=== PATIENT | female | born 1980 | race Caucasian/White ===

== ENCOUNTER 2017-01-19 12:20 | Emergency (ER) | payer BC ==
[2017-01-19 14:23] LABS: #Eosinphils 0.1 thou/uL (0.0-0.7); #Lymphocytes 2.2 thou/uL (1.20-3.40); #Monocytes 0.4 thou/uL (0.11-0.59); #Neutrophils 3.9 thou/uL (1.40-6.50); %Basophils 0.4 % (0.0-1.0); %Eosinophils 1.9 % (0.0-10.0); %Lymphocytes 33.3 % (21.0-51.0); %Monocytes 6.5 % (0.0-10.0); Hematocrit 38.1 % (36.0-47.0); Mean Platelet Volume 6.6 fL (7.4-10.4); Red Blood Cell (RBC) Count 4.06 mill/uL (4.20-5.40); White Blood Cell (WBC) Count 6.7 thou/uL (4.8-10.8)
[2017-01-19 14:47] LABS: ALT (SGPT) 11 U/L (8-55); AST (SGOT) 12 U/L (5-34); Alkaline Phosphatase 57 U/L (40-150); Anion Gap 11 mmol/L (10-20); BUN (Urea Nitrogen) 13 mg/dL (7.0-18.7); Bilirubin, Total 0.5 mg/dL (0.2-1.2); Calc. Creatinine Clearance 0 mL/min (70-130); Calcium 9.3 mg/dL (7.8-10.44); Carbon Dioxide 25 mmol/L (22-29); Chloride 104 mmol/L (98-107); Estimated GFR-MDRD 80; Globulin 4.1 g/dL (2.4-3.5); Lipase 7 U/L (8-78); Protein, Total 8.2 g/dL (6.0-8.3)
--- NOTE | 2017-01-19 15:07 | RAD ---
ABDOMEN 1 VIEW: HISTORY: Abdominal pain. COMPARISON: 06/28/16. FINDINGS: Gas and stool are present throughout the colon. Flocculent density is likely related to medication. Small bowel gas pattern is nonspecific. Phleboliths project over the pelvis. IMPRESSION: No significant abnormalities are demonstrated. POS: [facility]
[2017-01-19 15:20] LABS: Bilirubin Negative (Negative); Blood, Urine Negative (Negative); Glucose, Urine (Dipstick) Negative (Negative); Ketone, Urine Negative (Negative); Nitrite Negative (Negative); Protein, Urine (Dipstick) Negative (Neg-Trace); Urobilinogen 0.2 mg/dL (0.2-1.0)
== END 2017-01-19 15:12 | disposition home or self-care (01) ==
LOC: ERS 12:20
DX: K59.00 Constipation, unspecified (principal); J44.9 Chronic obstructive pulmonary disease, unspecified; G43.909 Migraine, unspecified, not intractable, without status migrainosus; F31.9 Bipolar disorder, unspecified; Z87.891 Personal history of nicotine dependence; Z79.899 Other long term (current) drug therapy
CPT/HCPCS: 36415; 74000; 80053; 81003; 83690; 85025

== ENCOUNTER 2017-10-24 16:18 | Outpatient (CLI) | payer BC ==
--- NOTE | 2017-10-24 17:21 | RAD ---
FOUR VIEW LEFT KNEE SERIES: 10/24/17 CLINICAL HISTORY: Exercise induced left knee pain. FINDINGS: There are two metallic screws traversing the proximal tibia. No significant perihardware lucency is s een. There is no acute fracture or significant a arthropathy. There is minute osteophytosis of the kn ee joint. IMPRESSION: Postoperative proximal left tibia. No acute osseous abnormality is visualized. POS: [facility]
== END 2017-10-24 16:19 | disposition home or self-care (01) ==
LOC: SCSRAD 16:18
PROVIDERS: ATTEND Family Medicine
DX: M22.2X2 Patellofemoral disorders, left knee (principal); Z98.890 Other specified postprocedural states

== ENCOUNTER 2017-10-29 13:31 | Emergency (ER) | payer BC ==
[2017-10-29] MEDS ORDERED: Water For Inject, Bacteriostat 30 ML ONE (14:22)
[2017-10-29] MEDS ORDERED: methylPREDNISolone Sod Succ/PF 125 MG/2 ML VIAL ONE (14:22)
[2017-10-29] MEDS ORDERED: Ketorolac Tromethamine 60 MG/2 ML VIAL ONE (14:22)
--- NOTE | 2017-10-29 15:00 | RAD ---
CHEST TWO VIEWS: History: Dyspnea. Comparison: 07-29-16 FINDINGS: Cardiac silhouette and pulmonary vasculature are unremarkable. Mediastinum is midline. No confluent a irspace consolidation, pneumothorax, or pleural fluid. IMPRESSION: No active cardiopulmonary abnormalities are demonstrated. POS: [facility]
== END 2017-10-29 15:23 | disposition home or self-care (01) ==
LOC: SCSER 13:31
DX: J45.901 Unspecified asthma with (acute) exacerbation (principal); S46.912A Strain of unspecified muscle, fascia and tendon at shoulder and upper arm level, left arm, initial encounter; F41.9 Anxiety disorder, unspecified; F31.9 Bipolar disorder, unspecified; Z87.891 Personal history of nicotine dependence; G43.909 Migraine, unspecified, not intractable, without status migrainosus; Z79.899 Other long term (current) drug therapy
CPT/HCPCS: 71046; 93005; 96372; J1885; J2930

== ENCOUNTER 2018-04-06 23:48 | Observation (INO) | payer BC ==
[2018-04-07 00:12] LABS: #Basophils 0.1 thou/uL (0.0-0.2); #Eosinphils 0.2 thou/uL (0.0-0.7); #Lymphocytes 2.2 thou/uL (1.20-3.40); #Monocytes 0.4 thou/uL (0.11-0.59); #Neutrophils 4.4 thou/uL (1.40-6.50); %Basophils 0.8 % (0.0-1.0); %Eosinophils 2.2 % (0.0-10.0); %Lymphocytes 30.4 % (21.0-51.0); %Neutrophils 60.7 % (42.0-75.0); Hemoglobin 12.4 g/dL (12.0-16.0); Mean Corpuscular HGB CONC 34.2 g/dL (32.0-36.0); Mean Corpuscular Volume 90.7 fL (78.0-98.0); Mean Platelet Volume 6.5 fL (7.4-10.4); Platelet Count 233 thou/uL (130-400); RBC Distribution Width 11.2 % (11.5-14.5); Red Blood Cell (RBC) Count 3.99 mill/uL (4.20-5.40); White Blood Cell (WBC) Count 7.2 thou/uL (4.8-10.8)
[2018-04-07 00:31] LABS: Bilirubin Negative (Negative); Blood, Urine Negative (Negative); Clarity CLOUDY (Clear); Glucose, Urine (Dipstick) Negative (Negative); Leukocyte Negative (Negative); Nitrite Negative (Negative); Protein, Urine (Dipstick) Negative (Neg-Trace); Specific Gravity, Urine 1.023 (1.002-1.036); Urobilinogen 0.2 mg/dL (0.2-1.0); pH, Urine 5.5 (5.0-9.0)
[2018-04-07 00:35] LABS: ALT (SGPT) 11 U/L (8-55); AST (SGOT) 16 U/L (5-34); Albumin 4.1 g/dL (3.5-5.0); Alkaline Phosphatase 55 U/L (40-150); Anion Gap 13 mmol/L (10-20); BUN (Urea Nitrogen) 14 mg/dL (7.0-18.7); Bilirubin, Total 0.2 mg/dL (0.2-1.2); Calc. Creatinine Clearance 0 mL/min (70-130); Carbon Dioxide 23 mmol/L (22-29); Chloride 107 mmol/L (98-107); Estimated GFR-MDRD 81; Globulin 3.9 g/dL (2.4-3.5); Glucose 105 mg/dL (70-105); Sodium 139 mmol/L (136-145)
[2018-04-07] MEDS ORDERED: Acetaminophen 500 MG TAB ONE (02:15)
[2018-04-07] MEDS ORDERED: Ondansetron PF 4 MG/2 ML Vial ONE (02:15)
[2018-04-07 02:29] LABS: Pregnancy Test - Urine (BHCG) Negative (Negative); Pregu Control Background? CLEAR/WHITE (CLR/WHITE); Pregu Control Bar Appear? YES (CONTROL BAR); Specific Gravity 1.023 (1.002-1.036)
[2018-04-07] MEDS ORDERED: Midazolam HCl 2 mg/2 ml Vial ONE (05:14)
[2018-04-07] MEDS ORDERED: Benzocaine 20% Spray 60 ML CAN ONE (05:19)
[2018-04-07] MEDS ORDERED: Lidocaine 2% Jelly 5 ML TUBE ONE (05:21)
[2018-04-07 07:45] VITALS: BMI 38.1
--- NOTE | 2018-04-07 09:31 | RAD ---
FRONTAL RADIOGRAPH ABDOMEN: Date: 04/07/18 COMPARISON: 01/19/17. HISTORY: SBO, nasogastric tube placement. FINDINGS: Nasogastric tube extends into the midline epigastric region. No free intraperitoneal air. No air flui d levels. IMPRESSION: Nasogastric tube as above. POS: [facility]
--- NOTE | 2018-04-07 09:37 | CT ---
PRELIMINARY REPORT/[facility]/EMERGENTY AFTER-HOURS PROCEDURE CT Abdomen and Pelvis With Contrast EXAM DATE/TIME: 04/07/2018 2:11 AM CLINICAL HISTORY: 37 years old, female; Pain; Abdominal pain; Generalized; Patient HX: F37 presents to ed for abdominal pain. PT reports the pain began on saturday and it began suddenly, not after eating. PT reports the pa in is all over the middle of her abdomen. PT denies drinking alcohol. Hx- seizures, on medication. TECHNIQUE: Axial computed tomography images of the abdomen and pelvis with intravenous contrast. Coronal reformatted images were created and reviewed. COMPARISON: No relevant prior studies available. FINDINGS: Lower thorax: Small-sized hiatal hernia. ABDOMEN: Liver: Normal. Gallbladder and bile ducts: Normal. Pancreas: Normal. Spleen: Normal. Adrenals: Normal. Kidneys and ureters: Normal. Stomach and bowel: Scattered colonic diverticulosis. Few loops of minimally dilated, gas and fluid fi lled mid and distal small bowel, without definite focal transition to normal caliber small bowel iden tified. Appendix: Appendix is normal. PELVIS: Bladder: Unremarkable as visualized. Reproductive: Unremarkable as visualized. ABDOMEN and PELVIS: Intraperitoneal space: Small amount of pelvic free fluid. Bones/joints: Bilateral L5 pars defects. Soft tissues: Moderate-sized fat containing ventral hernia, without acute complications. Vasculature: Normal. No abdominal aortic aneurysm. Lymph nodes: Normal. No enlarged lymph nodes. IMPRESSION: Few loops of minimally dilated, gas and fluid-filled mid and distal small bowel, without definite foc al transition to normal caliber small bowel identified. Findings likely represent ileus, although par tial small bowel obstruction possible. Thank you for allowing us to participate in the care of your patient. Dictated and Authenticated by: Gary Ornelas MD 04/07/2018 3:19 AM Central Time ([place] & [place]) FINAL REPORT CT ABDOMEN AND PELVIS WITH IV CONTRAST: Date: 04/07/18 FINDINGS/IMPRESSION: I agree with the preliminary report given by Sridevi. POS: [facility]
[2018-04-07] MEDS ORDERED: Ondansetron PF 4 MG/2 ML Vial IVP PRN (10:19)
[2018-04-07] MEDS ORDERED: Sodium Chloride 0.9% 1,000 ML IV SCH (10:19)
[2018-04-07] MEDS ORDERED: Ondansetron ODT 4 MG TAB SL PRN (10:19)
[2018-04-07] MEDS ORDERED: Acetaminophen 325 MG TAB PO PRN (10:19)
[2018-04-07] MEDS ORDERED: Cepastat Lozenges 1 LOZ PO PRN (10:20)
[2018-04-07] MEDS ORDERED: Chloraseptic Spray 180 ml Bottle PO PRN (10:21)
[2018-04-07] MEDS ORDERED: Pantoprazole 40 MG VIAL IVP SCH (10:30)
[2018-04-07] MEDS: D5 1/2 NS w/20 mEq KCL 1,000 ML IV SCH ×2 (10:50→20:07)
[2018-04-07] MEDS: Acetaminophen 1,000 MG in Premix Bag 1 BAG IVPB PRN (10:50)
[2018-04-07] MEDS ORDERED: PROVENTIL INHALER 6.7 G (200 INHALATIONS) INH PRN (12:07)
[2018-04-07] MEDS ORDERED: tiZANidine HCl 4 MG TAB PO PRN (12:07)
--- NOTE | 2018-04-07 18:00 | HP ---
CHIEF COMPLAINT: Abdominal pain. HISTORY: Ms. Preston is a 37-year-old woman, who presented to the emergency room with abdominal pain, nausea, and vomiting, which came on suddenly around 1 o'clock yesterday afternoon. She states that the pain is diffuse and came on several hours after eating and did not seem to be related to what she ate. It is a little better since she has been admitted to the hospital. PAST MEDICAL HISTORY: Asthma and an abnormal heart rhythm as well as severe migraines. PAST SURGICAL HISTORY: Attempted laparoscopic ovarian cystectomy with injury to the either iliac or aortic vessels and required emergent surgery when she was young. She has since undergone hysterectomy and was found to have bowel adherent to her uterus and had a small bowel resection for that. She has also had knee surgery and tubal ligation. She does have a history of anxiety as well as migraines. SOCIAL HISTORY: Quit both tobacco and drugs many years ago. ALLERGIES: SHE HAS AN ADVERSE DRUG REACTION TO MORPHINE, WHICH CAUSES HER TO BECOME COMBATIVE. OUTPATIENT MEDICATIONS: Include: 1. Sertraline. 2. Topamax. 3. Tizanidine. 4. Lamictal. 5. Advair and ProAir inhalers. 6. DuoNeb as needed. 7. Singulair. 8. Topiramate. FAMILY HISTORY: Noncontributory. REVIEW OF SYSTEMS: Negative except per HPI. Her breathing is fine and she has not had to use her rescue inhaler for a while. PHYSICAL EXAMINATION: VITAL SIGNS: The patient has been afebrile with normal vital signs since her admission. HEENT: Unremarkable. NECK: Supple without lymphadenopathy or thyroid nodules. HEART: Regular in its rate and rhythm. I do not appreciate any murmurs, rubs, or gallops. LUNGS: Clear to auscultation bilaterally. ABDOMEN: Soft and nondistended. She does have some mild diffuse tenderness to palpation, but does not exhibit rigidity, rebound, or guarding. Bowel sounds are present, although somewhat hypoactive. She has a healed midline incision as well as lateral laparoscopic incisions. EXTREMITIES: Warm and well perfused without edema. NEURO: No focal deficits. PSYCHIATRIC: Alert, oriented, and appropriate. LABORATORY DATA: Labs show normal white count without shift, unremarkable electrolytes, and clear urine. CT images are reviewed and I agree with the written report. The patient does have dilated proximal and decompressed distal small bowel loops. ASSESSMENT: Partial small bowel obstruction, improving. The patient has passed gas twice since her admission and her abdominal pain is less than when she came in. We will continue with bowel rest and NG decompression and order a small bowel Gastrografin follow-through for tomorrow. If she has persistent obstruction, then surgery may be required. Job ID: [id number]
[2018-04-07] MEDS: Mometasone/Formoterol 120 PUFF INHALER INH SCH (19:30)
[2018-04-07] MEDS: Topiramate 100 MG TAB PO SCH (20:08)
[2018-04-07] MEDS: Ondansetron PF 4 MG/2 ML Vial SLOW IVP PRN (20:13)
[2018-04-07] MEDS ORDERED: Montelukast Sodium 10 mg Tablet PO SCH (21:00)
[2018-04-07] MEDS ORDERED: lamoTRIgine 25 MG TAB PO SCH (21:00)
[2018-04-08] MEDS: D5 1/2 NS w/20 mEq KCL 1,000 ML IV SCH ×2 (03:43→12:30)
[2018-04-08] MEDS: Mometasone/Formoterol 120 PUFF INHALER INH SCH (07:23)
[2018-04-08] MEDS: Ondansetron PF 4 MG/2 ML Vial SLOW IVP PRN (08:04)
[2018-04-08] MEDS: Acetaminophen 1,000 MG in Premix Bag 1 BAG IVPB PRN (08:04)
[2018-04-08] MEDS: Topiramate 100 MG TAB PO SCH (08:05)
[2018-04-08] MEDS ORDERED: Pantoprazole 40 MG VIAL IVP SCH (09:00)
[2018-04-08] MEDS ORDERED: lamoTRIgine 25 MG TAB PO SCH (09:00)
--- NOTE | 2018-04-08 11:41 | RAD ---
SMALL BOWEL SERIES: Date: 04/08/18 HISTORY: Small bowel obstruction, abdominal pain. FINDINGS: [employer] film demonstrates a nasogastric tube in the stomach. The bowel gas pattern is unremarkable. Gastrografin was instilled into the stomach via NG tube. There is transit of contrast from the loops of small bowel into the colon, reaching the colon within an hour. The small bowel loops are not abnor petra dilated. IMPRESSION: No evidence of small bowel obstruction. POS: [facility]
[2018-04-08 11:42] VITALS: BP 112/73; TEMP 97.4
--- NOTE | 2018-04-08 22:32 | DIS ---
DATE OF ADMISSION: 04/07/2018 DATE OF DISCHARGE: 04/08/2018 HOSPITAL COURSE: Ms. Preston is a 37-year-old woman, who presented to the emergency room with abdominal pain, nausea, and vomiting. She was found to have evidence of a small-bowel obstruction on CT scan and was admitted for bowel decompression and bowel rest. She responded well to this and began to pass gas. Her pain and nausea diminished and then resolved. She underwent a small-bowel follow-through which showed rapid transit of contrast through the small intestine into the colon with no evidence of obstruction. Her NG tube was removed and a diet ordered. If she tolerates that, she will be discharged home with instructions to advance her diet at home from clear to full liquids and then to soft and then regular food. She can follow up with the surgery clinic on an as-needed basis. No new prescriptions were dispensed. Job ID: [id number]
== END 2018-04-08 15:20 | disposition home or self-care (01) ==
LOC: ERS 23:48 → SJJU 04-07 04:15
PROVIDERS: ADMIT Specialist; ATTEND Specialist
DX: K56.600 Partial intestinal obstruction, unspecified as to cause (principal); K44.9 Diaphragmatic hernia without obstruction or gangrene; K57.30 Diverticulosis of large intestine without perforation or abscess without bleeding; J45.909 Unspecified asthma, uncomplicated; G43.909 Migraine, unspecified, not intractable, without status migrainosus; I49.9 Cardiac arrhythmia, unspecified; Z87.891 Personal history of nicotine dependence; Z88.5 Allergy status to narcotic agent; Z79.51 Long term (current) use of inhaled steroids; Z79.899 Other long term (current) drug therapy; Z88.8 Allergy status to other drugs, medicaments and biological substances; Z90.49 Acquired absence of other specified parts of digestive tract; Z90.710 Acquired absence of both cervix and uterus; Z98.890 Other specified postprocedural states
CPT/HCPCS: 36415; 43752; 74018; 74177; 74250; 80053; 81003; 81025; 83690; 85025; 94664; 96361; 96374; 96375; 96376; C9113; G0378; J0131; J2250; J2405

== ENCOUNTER 2018-07-04 10:26 | Outpatient (CLI) | payer BC ==
--- NOTE | 2018-07-23 15:52 | MMO ---
Bilateral MAMMO Bilat Screen [facility]. CLINICAL HISTORY: Patient is 38 years old and is seen for screening. The patient has no family history of breast cancer. The patient has no personal history of cancer. VIEWS: The views performed were: bilateral craniocaudal with tomosynthesis and bilateral mediolateral oblique with tomosynthesis. MAMMOGRAM FINDINGS: There are scattered fibroglandular densities. There are no suspicious masses, suspicious calcifications, or new areas of architectural distortion. IMPRESSION: THERE IS NO MAMMOGRAPHIC EVIDENCE OF MALIGNANCY. A ROUTINE FOLLOW-UP MAMMOGRAM IN 1 YEAR IS RECOMMENDED. THE RESULTS OF THIS EXAM WERE SENT TO THE PATIENT. ACR BI-RADS Category 1 - Negative MAMMOGRAPHY NOTE: 1. A negative mammogram report should not delay a biopsy if a dominant of clinically suspicious mass is present. 2. Approximately 10% to 15% of breast cancers are not detected by mammography. 3. Adenosis and dense breasts may obscure an underlying neoplasm.
== END 2018-07-04 10:27 | disposition home or self-care (01) ==
LOC: BICMAMMO 10:26
PROVIDERS: ATTEND Family Medicine
DX: Z12.31 Encounter for screening mammogram for malignant neoplasm of breast (principal)
CPT/HCPCS: 77063; 77067

== ENCOUNTER 2018-08-21 14:23 | Outpatient (CLI) | payer BC ==
[~2018-08-21 14:23] MED LIST: Gadobenate Dimeglumine 529 MG/1 ML (20ML VIAL) ONE
--- NOTE | 2018-08-21 16:01 | MRI ---
MRI OF BRAIN WITH AND WITHOUT CONTRAST: 08/21/18 Multiplanar and Multisequential imaging of the brain obtained. INDICATIONS: Seizures. History of TIAs. FINDINGS: Ventricles have normal size and position. No evidence of mass or edema. There is no evidence of rest ricted diffusion. There is no evidence of white matter abnormality. No abnormal enhancement identifie d. Intracranial internal carotid arteries and cerebral arteries show expected flow voids. The paranasal sinuses and mastoids appear clear. IMPRESSION: Unremarkable MRI of the brain. POS: [facility]
== END 2018-08-21 14:24 | disposition home or self-care (01) ==
LOC: SCSMRI 14:23
PROVIDERS: ATTEND Nurse Practitioner Acute Care
DX: R56.9 Unspecified convulsions (principal)
CPT/HCPCS: 70553; A9577

== ENCOUNTER 2018-09-14 15:05 | Emergency (ER) | payer BC, SELFPAY ==
[~2018-09-14 15:05] MED LIST changes: -Gadobenate Dimeglumine 529 MG/1 ML (20ML VIAL) ONE; +ISOVUE-370 76%-LOCM 1 ML ONE; +Iopamidol 370 76% 50 ML VIAL FS ONE
[2018-09-14] MEDS ORDERED: Ondansetron PF 4 MG/2 ML Vial ONE ×2 (15:41→19:26)
[2018-09-14 16:01] LABS: #Basophils 0.1 thou/uL (0.0-0.2); #Eosinphils 0.1 thou/uL (0.0-0.7); #Lymphocytes 1.5 thou/uL (1.20-3.40); #Monocytes 0.4 thou/uL (0.11-0.59); #Neutrophils 5.5 thou/uL (1.40-6.50); %Basophils 0.7 % (0.0-1.0); %Eosinophils 1.7 % (0.0-10.0); %Lymphocytes 19.9 % (21.0-51.0); %Monocytes 5.2 % (0.0-10.0); %Neutrophils 72.5 % (42.0-75.0); Hemoglobin 12.4 g/dL (12.0-16.0); Mean Corpuscular HGB CONC 33.8 g/dL (32.0-36.0); Mean Corpuscular Hemoglobin 30.9 pg (27.0-31.0); Mean Corpuscular Volume 91.4 fL (78.0-98.0); Mean Platelet Volume 6.7 fL (7.4-10.4); Platelet Count 231 thou/uL (130-400); RBC Distribution Width 11.2 % (11.5-14.5); Red Blood Cell (RBC) Count 4.02 mill/uL (4.20-5.40); White Blood Cell (WBC) Count 7.6 thou/uL (4.8-10.8)
[2018-09-14 16:30] LABS: ALT (SGPT) 10 U/L (8-55); AST (SGOT) 12 U/L (5-34); Albumin 4.5 g/dL (3.5-5.0); Alkaline Phosphatase 52 U/L (40-150); Anion Gap 12 mmol/L (10-20); BUN (Urea Nitrogen) 17 mg/dL (7.0-18.7); Bilirubin, Total 0.3 mg/dL (0.2-1.2); Calc. Creatinine Clearance 0 mL/min (70-130); Calcium 9.5 mg/dL (7.8-10.44); Carbon Dioxide 24 mmol/L (22-29); Chloride 106 mmol/L (98-107); Estimated GFR-MDRD 68; Globulin 3.6 g/dL (2.4-3.5); Glucose 100 mg/dL (70-105); Lipase 17 U/L (8-78); Potassium 3.7 mmol/L (3.5-5.1); Protein, Total 8.1 g/dL (6.0-8.3); Sodium 138 mmol/L (136-145)
[2018-09-14 17:04] LABS: Bilirubin Negative (Negative); Blood, Urine Negative (Negative); Clarity CLEAR (Clear); Glucose, Urine (Dipstick) Negative (Negative); Leukocyte Negative (Negative); Nitrite Negative (Negative); Protein, Urine (Dipstick) Negative (Neg-Trace); Specific Gravity, Urine 1.005 (1.002-1.036); Urobilinogen 0.2 mg/dL (0.2-1.0); pH, Urine 5.5 (5.0-9.0)
--- NOTE | 2018-09-14 17:41 | CT ---
CT Abdomen Pelvis W Con: 09/14/2018 3:39 PM CLINICAL INFORMATION: Nausea, vomiting, and diarrhea for 4 days. COMPARISON: 04/07/2018 TECHNIQUE: Multiple contiguous axial images were obtained and a CT of the abdomen and pelvis with IV contrast. Oral contrast was administered. Coronal reformats were performed. FINDINGS: Lower Chest: within normal limits. Abdomen: Liver: Benign calcification in the right lobe. No other liver lesions identified. Bile Ducts: Normal caliber. Gallbladder: No calcified gallstones. Normal caliber wall. Pancreas: within normal limits. Spleen: Single benign-appearing calcification. Adrenals: within normal limits. Kidneys: within normal limits. Pelvis: Reproductive Organs: Status post hysterectomy Ureters: within normal limits. Bladder: within normal limits. Peritoneum: No ascites or free air, no fluid collection. Bowel: The small bowel is normal in caliber. There are stranding changes adjacent to the terminal ile um. These are nonspecific. The appendix appears normal in size. Mesentery and Retroperitoneum: No enlarged mesenteric or retroperitoneal lymph nodes. Vessels: Normal. Abdominal Wall: 4.4 cm fat-containing ventral hernia just above the umbilicus. Bones: Within normal limits IMPRESSION: Nonspecific stranding changes adjacent to the terminal ileum may represent focal ileitis. Recommend f ollowing to resolution to exclude an underlying mass in the small bowel mesentery adjacent to the terminal ileum.
== END 2018-09-14 19:36 | disposition home or self-care (01) ==
LOC: ERS 15:05
DX: K52.9 Noninfective gastroenteritis and colitis, unspecified (principal); J44.9 Chronic obstructive pulmonary disease, unspecified; G43.909 Migraine, unspecified, not intractable, without status migrainosus; F41.9 Anxiety disorder, unspecified; Z87.891 Personal history of nicotine dependence; Z79.899 Other long term (current) drug therapy; Z79.51 Long term (current) use of inhaled steroids
CPT/HCPCS: 74177; 80053; 81003; 83690; 85025; 96361; 96374; 96376; J2405; Q9966; Q9967

== ENCOUNTER 2019-10-20 11:39 | Outpatient (CLI) | payer BC, OTHER ==
[2019-10-20 16:20] LABS: #Basophils 0.1 thou/uL (0.0-0.2); #Eosinphils 0.1 thou/uL (0.0-0.7); #Monocytes 0.4 thou/uL (0.11-0.59); #Neutrophils 4.5 thou/uL (1.40-6.50); %Eosinophils 1.6 % (0.0-10.0); %Lymphocytes 28.3 % (21.0-51.0); %Monocytes 6.1 % (0.0-10.0); Hemoglobin 12.3 g/dL (12.0-16.0); Mean Corpuscular HGB CONC 33.7 g/dL (32.0-36.0); Mean Corpuscular Hemoglobin 30.9 pg (27.0-31.0); Mean Corpuscular Volume 91.7 fL (78.0-98.0); Mean Platelet Volume 7.1 fL (7.4-10.4); Platelet Count 238 thou/uL (130-400); RBC Distribution Width 11.3 % (11.5-14.5); Red Blood Cell (RBC) Count 3.98 mill/uL (4.20-5.40); White Blood Cell (WBC) Count 7.2 thou/uL (4.8-10.8)
[2019-10-20 16:38] LABS: Anion Gap 15 mmol/L (10-20); BUN (Urea Nitrogen) 12 mg/dL (7.0-18.7); Calc. Creatinine Clearance 0 mL/min (70-130); Calcium 8.7 mg/dL (7.8-10.44); Carbon Dioxide 20 mmol/L (22-29); Chloride 108 mmol/L (98-107); Estimated GFR-MDRD 66; Glucose 103 mg/dL (70-105); Potassium 3.5 mmol/L (3.5-5.1); Sodium 139 mmol/L (136-145)
--- NOTE | 2019-10-20 20:02 | HP ---
HISTORY OF PRESENT ILLNESS: Lanny Preston is a 39-year-old female, 234 pounds, 64 inches, with an incisional hernia in her upper midline incision, about 4 to 5 fingerbreadths above her umbilicus that extends to her left upper quadrant. She had a recent CAT scan, where this impression was not mentioned, but was seen in the body of the report. She reports a bulge that is uncomfortable to her. Plan is to repair this using a robot and mesh. PAST SURGICAL HISTORY: ORIF of left knee in 1993, ovarian cyst 1995, tubal ligation in 1999, cardiac catheterization normal in 2010. Laparoscopy at [facility] for gynecological purposes. She has suffered tear requiring laparotomy and transfusions. She in June 2016, has undergone hysterectomy and suffered an ileal injury requiring segmental ileal resection and anastomosis that I performed. PAST MEDICAL HISTORY: Asthma, normal cardiac catheterization in 2010. FAMILY HISTORY: Father, heart disease. Mother, heart disease. Both are living. Paternal grandfather, cancer. SOCIAL HISTORY: Tobacco cessation in 2010. Alcohol, none. The patient is single. She is a solo truck driver. She has not had a colonoscopy today for age of 39. REVIEW OF SYSTEMS: Ten-point noncontributory. FAMILY HISTORY: Above. MEDICATIONS: 1. Topamax 100 mg a day. 2. Singulair 10 mg a day. 3. Lamictal 25 mg in a.m., 50 mg nightly. 4. Albuterol sulfate two puffs as needed. 5. Relpax 20 mg a day as needed. PHYSICAL EXAMINATION: VITAL SIGNS: Weight 234 pounds, height 64 inches. Blood pressure 114/76, pulse 88, temperature 97.8 degrees. HEAD, EARS, EYES, NOSE AND THROAT: Unremarkable. LUNGS: Clear to auscultation. CARDIAC: Regular rate and rhythm without murmur or gallop. ABDOMEN: Obese, soft. Midline scar from above her umbilicus to below. She has an incisional hernia on standing, reduces when supine. A small defect, probably upper portion of midline incision, between the umbilicus and xiphoid. ASSESSMENT AND PLAN: 1. Incisional hernia. We would recommend repair using mesh. We will plan to use a robot. She understands risks of infection, bleeding, reoperation, open procedure, risks, and consents. 2. Asthma. Job ID: [id number]
[2019-10-21 12:51] LABS: SARS-CoV-2 MS2 Positive; SARS-CoV-2 N Gene Negative; SARS-CoV-2 S Gene Negative; SARS-CoV-2 orf1ab Negative
== END 2019-10-20 11:40 | disposition home or self-care (01) ==
LOC: LABBT 11:39
PROVIDERS: ATTEND Specialist
DX: Z01.812 Encounter for preprocedural laboratory examination (principal); Z11.59 Encounter for screening for other viral diseases; K43.2 Incisional hernia without obstruction or gangrene
CPT/HCPCS: 80048; 85025; 87635; U0003

== ENCOUNTER 2019-10-23 06:14 | Day surgery (SDC) | payer BC ==
[2019-10-20 13:24] VITALS: BMI 41.6
[2019-10-23] MEDS ORDERED: Fentanyl 100 MCG/2 ML VIAL ONE ×4 (06:17→11:21)
[2019-10-23] MEDS ORDERED: Gabapentin 300 MG CAP ONE (06:40)
[2019-10-23] MEDS ORDERED: Ketorolac Tromethamine 30 MG/ML VIAL ONE (06:40)
[2019-10-23] MEDS ORDERED: Acetaminophen 500 MG TAB ONE (06:40)
[2019-10-23] MEDS ORDERED: Bupivacaine 0.25% HCL 30 ML VIAL ONE (06:44)
[2019-10-23] MEDS ORDERED: Lidocaine 1% w/Epinephrine 1:100K 20 ML VIAL ONE (06:44)
[2019-10-23] MEDS ORDERED: Midazolam HCl 2 mg/2 ml Vial ONE (07:22)
[2019-10-23] MEDS ORDERED: Ondansetron PF 4 MG/2 ML Vial ONE ×2 (11:07→12:26)
[2019-10-23] MEDS ORDERED: Rocuronium Bromide 10 MG/ML (10ML VIAL) ONE (12:26)
[2019-10-23] MEDS ORDERED: Lidocaine 1% PF 5 ML VIAL ONE (12:26)
[2019-10-23] MEDS ORDERED: PHENYLEPHRINE-NS 100 MCG/ML 10 ML SYRINGE ONE (12:26)
[2019-10-23] MEDS ORDERED: Dexamethasone 20 MG/5 ML VIAL ONE (12:26)
[2019-10-23] MEDS ORDERED: PROPOFOL 200 MG/20 ML VIAL ONE (12:26)
[2019-10-23] MEDS ORDERED: HYDROcodone/Acetaminophen 5/325 mg Tablet ONE (12:42)
--- NOTE | 2019-10-23 14:39 | OP ---
DATE OF PROCEDURE: 10/23/2019 PREOPERATIVE DIAGNOSES: 1. Morbid obesity. 2. Incisional hernia above the umbilicus. ANESTHESIA: General, local 0.5% Marcaine 30 mL mixed with 1% Xylocaine with epinephrine 20 mL, total volume used. PROCEDURE PERFORMED: Robot laparoscopic incisional hernia repair, lysis of adhesions, 10 cm mesh used, abdominal binder and Kerlix roll applied to the hernia sac, supraumbilical. DESCRIPTION OF PROCEDURE: The patient was taken to the operating room where under general anesthesia Campos catheter placed at the beginning of the procedure and removed at the end. Abdomen was prepared with ChloraPrep and draped in routine fashion. Local anesthetic mixture was infiltrated into the skin and subcutaneous tissue about the port sites and about the supraumbilical area. Right lateral subcostal incision made in the pneumoperitoneum, 15 mmHg obtained with the Veress needle, replaced with an 8 mm port. Laparoscope inserted and a right lateral mid abdominal incision made and initially 11 port and eventually a 12 port placed for longer catheter due to the obesity. Right lower quadrant incision made and an 11 port placed. Robot was docked and incisional hernia repair undertaken taking down adhesions, reducing incarcerated omentum from the hernia defect. The hernia defect was about 6 cm in diameter. Pneumoperitoneum reduced to 9 mmHg and fascial defect closed after removing some of the hernia sac with cautery hemostasis. Fascia approximated with continuous suture of #1 V-Loc to and fro. Good approximation achieved. Mesh was introduced and visceral coated side properly positioned and mesh secured to the abdominal wall with continuous suture of #2-0 V-lock circumferential. [place] and sutures retrieved, removed. Pneumoperitoneum reduced. Good hemostasis noted. No complications occurred. All instruments removed all skin incisions were approximated with interrupted subdermal 4-0 Monocryl and Haugan glue applied. The patient tolerated the procedure well. Job ID: [id number]
== END 2019-10-23 14:40 | disposition home or self-care (01) ==
LOC: SDC 06:14
PROVIDERS: ATTEND Specialist
PROC: 0WQF4ZZ Repair Abdominal Wall, Percutaneous Endoscopic Approach (ICD-10-PCS; principal; 2019-10-23)
DX: K43.2 Incisional hernia without obstruction or gangrene (principal); Z79.899 Other long term (current) drug therapy; Z88.5 Allergy status to narcotic agent; Z88.6 Allergy status to analgesic agent
CPT/HCPCS: C1781; J0690; J1100; J1885; J2250; J2405; J2704; J3010; J7620; S0020

== ENCOUNTER 2020-01-31 18:15 | Emergency (ER) | payer BC ==
[2020-01-31 18:47] LABS: #Basophils 0.1 thou/uL (0.0-0.2); #Eosinphils 0.2 thou/uL (0.0-0.7); #Lymphocytes 2.3 thou/uL (1.20-3.40); #Monocytes 0.4 thou/uL (0.11-0.59); #Neutrophils 3.8 thou/uL (1.40-6.50); %Basophils 1.1 % (0.0-1.0); %Eosinophils 2.3 % (0.0-10.0); %Lymphocytes 33.7 % (21.0-51.0); %Monocytes 5.7 % (0.0-10.0); %Neutrophils 57.3 % (42.0-75.0); Mean Corpuscular HGB CONC 34.6 g/dL (32.0-36.0); Mean Corpuscular Hemoglobin 31.4 pg (27.0-31.0); Mean Corpuscular Volume 90.7 fL (78.0-98.0); Mean Platelet Volume 7.5 fL (7.4-10.4); Platelet Count 218 thou/uL (130-400); RBC Distribution Width 11.4 % (11.5-14.5); Red Blood Cell (RBC) Count 4.16 mill/uL (4.20-5.40); White Blood Cell (WBC) Count 6.7 thou/uL (4.8-10.8)
--- NOTE | 2020-01-31 18:56 | RAD ---
Portable frontal chest radiograph: 01/31/2020 COMPARISON: 06/29/2016 HISTORY: Intermittent chest pain, sore throat FINDINGS: Lungs are clear. Heart and mediastinal contours appear within normal limits. IMPRESSION: No acute findings.
[2020-01-31 19:17] LABS: ALT (SGPT) 14 U/L (8-55); AST (SGOT) 14 U/L (5-34); Albumin 4.2 g/dL (3.5-5.0); Alkaline Phosphatase 48 U/L (40-110); Anion Gap 13 mmol/L (10-20); BUN (Urea Nitrogen) 15 mg/dL (7.0-18.7); Bilirubin, Total 0.3 mg/dL (0.2-1.2); Calc. Creatinine Clearance 0 mL/min (70-130); Calcium 8.9 mg/dL (7.8-10.44); Carbon Dioxide 19 mmol/L (22-29); Chloride 111 mmol/L (98-107); Estimated GFR-MDRD 66; Globulin 3.6 g/dL (2.4-3.5); Glucose 95 mg/dL (70-105); Potassium 3.6 mmol/L (3.5-5.1); Protein, Total 7.8 g/dL (6.0-8.3); Sodium 139 mmol/L (136-145)
== END 2020-01-31 20:49 | disposition home or self-care (01) ==
LOC: ERS 18:15
DX: R07.89 Other chest pain (principal); J02.9 Acute pharyngitis, unspecified; J44.9 Chronic obstructive pulmonary disease, unspecified; F41.9 Anxiety disorder, unspecified; Z87.891 Personal history of nicotine dependence; Z79.899 Other long term (current) drug therapy
CPT/HCPCS: 71045; 80053; 84484; 85025; 85379; 87081; 87430; 87804; 93005

== ENCOUNTER 2020-03-03 08:42 | Outpatient (CLI) | payer BC ==
--- NOTE | 2020-03-03 09:14 | MMO ---
Bilateral MAMMO Bilat Screen [facility]. CLINICAL HISTORY: Patient is 39 years old and is seen for screening. The patient has no family history of breast cancer. The patient has no personal history of cancer. VIEWS: The views performed were: bilateral craniocaudal with tomosynthesis and bilateral mediolateral oblique with tomosynthesis. FILMS COMPARED: The present examination has been compared to a prior imaging study performed at [facility] on 07/04/2018. This study has been interpreted with the assistance of computer-aided detection. MAMMOGRAM FINDINGS: There are scattered fibroglandular densities. There are no suspicious masses, suspicious calcifications, or new areas of architectural distortion. IMPRESSION: THERE IS NO MAMMOGRAPHIC EVIDENCE OF MALIGNANCY. A ROUTINE FOLLOW-UP MAMMOGRAM IN 1 YEAR IS RECOMMENDED. THE RESULTS OF THIS EXAM WERE SENT TO THE PATIENT. ACR BI-RADS Category 1 - Negative MAMMOGRAPHY NOTE: 1. A negative mammogram report should not delay a biopsy if a dominant of clinically suspicious mass is present. 2. Approximately 10% to 15% of breast cancers are not detected by mammography. 3. Adenosis and dense breasts may obscure an underlying neoplasm. Reported by: AL BARILLAS MD Electonically Signed: [id number]
== END 2020-03-03 08:43 | disposition home or self-care (01) ==
LOC: BICMAMMO 08:42
PROVIDERS: ATTEND Family Medicine
DX: Z12.31 Encounter for screening mammogram for malignant neoplasm of breast (principal)
CPT/HCPCS: 77063; 77067

== ENCOUNTER 2021-08-10 18:03 | Observation (INO) | payer BC ==
[2021-08-10 18:58] LABS: #Basophils 0.1 thou/uL (0.0-0.2); #Eosinphils 0.1 thou/uL (0.0-0.7); #Lymphocytes 3.6 thou/uL (1.20-3.40); #Monocytes 0.4 thou/uL (0.11-0.59); #Neutrophils 3.4 thou/uL (1.40-6.50); %Basophils 0.8 % (0.0-1.0); %Eosinophils 1.9 % (0.0-10.0); %Lymphocytes 47.2 % (21.0-51.0); %Monocytes 5.7 % (0.0-10.0); %Neutrophils 44.4 % (42.0-75.0); Hemoglobin 12.2 g/dL (12.0-16.0); Mean Corpuscular HGB CONC 34.3 g/dL (32.0-36.0); Mean Corpuscular Hemoglobin 32.1 pg (27.0-31.0); Mean Corpuscular Volume 93.5 fL (78.0-98.0); Mean Platelet Volume 6.9 fL (7.4-10.4); Platelet Count 229 thou/uL (130-400); RBC Distribution Width 11.1 % (11.5-14.5); Red Blood Cell (RBC) Count 3.81 mill/uL (4.20-5.40); White Blood Cell (WBC) Count 7.6 thou/uL (4.8-10.8)
[2021-08-10 19:22] LABS: ALT (SGPT) 19 U/L (8-55); AST (SGOT) 15 U/L (5-34); Albumin 4.1 g/dL (3.5-5.0); Alkaline Phosphatase 39 U/L (40-110); Anion Gap 12 mmol/L (10-20); BUN (Urea Nitrogen) 19 mg/dL (7.0-18.7); Bilirubin, Total 0.3 mg/dL (0.2-1.2); Calc. Creatinine Clearance 0 mL/min (70-130); Calcium 8.7 mg/dL (7.8-10.44); Carbon Dioxide 21 mmol/L (22-29); Chloride 109 mmol/L (98-107); Globulin 3.1 g/dL (2.4-3.5); Glucose 86 mg/dL (70-105); Lipase 30 U/L (8-78); Potassium 3.4 mmol/L (3.5-5.1); Protein, Total 7.2 g/dL (6.0-8.3); Sodium 139 mmol/L (136-145)
[2021-08-10] MEDS ORDERED: Aspirin Chewable 81 MG TAB ONE (21:37)
[2021-08-10] MEDS ORDERED: Cephalexin 250 MG CAP ONE (23:23)
[2021-08-10] MEDS ORDERED: ALPRAZolam 0.25 MG TAB ONE (23:23)
[2021-08-10] MEDS ORDERED: metroNIDAZOLE 250 MG TAB ONE (23:23)
[2021-08-10] MEDS ORDERED: Doxycycline 100 MG CAP PO SCH (23:45)
[2021-08-10] MEDS ORDERED: Montelukast Sodium 10 mg Tablet PO SCH (23:45)
[2021-08-11 01:06] LABS: Troponin I Less than 0.010 ng/mL (< 0.028)
[2021-08-11 01:20] VITALS: BMI 35.0
[2021-08-11 04:25] LABS: Troponin I Less than 0.010 ng/mL (< 0.028)
[2021-08-11] MEDS ORDERED: RIMEGEPANT SULFATE 75 MG PO PRN (04:37)
[2021-08-11] MEDS ORDERED: ELETRIPTAN HBR 40 MG PO PRN (04:37)
[2021-08-11] MEDS ORDERED: SUMAtriptan Succinate 50 MG TAB PO PRN (04:51)
[2021-08-11] MEDS ORDERED: Ondansetron ODT 4 MG TAB PO PRN (06:22)
[2021-08-11] MEDS ORDERED: Ondansetron PF 4 MG/2 ML Vial IVP PRN (06:22)
[2021-08-11] MEDS ORDERED: Acetaminophen 325 MG TAB PO PRN (06:22)
[2021-08-11] MEDS ORDERED: hydrALAZINE 20 MG/ML VIAL SLOW IVP PRN (06:22)
[2021-08-11] MEDS ORDERED: Acetaminophen 650 MG Suppository PR PRN (06:22)
[2021-08-11] MEDS ORDERED: Electrolyte Replacement Protocol 1 EACH FS SCH (06:45)
[2021-08-11 07:12] LABS: Anion Gap 12 mmol/L (10-20); BUN (Urea Nitrogen) 18 mg/dL (7.0-18.7); Calc. Creatinine Clearance 129 mL/min (70-130); Calcium 8.7 mg/dL (7.8-10.44); Carbon Dioxide 21 mmol/L (22-29); Chloride 109 mmol/L (98-107); Glucose 92 mg/dL (70-105); Magnesium 1.9 mg/dL (1.6-2.6); Potassium 3.8 mmol/L (3.5-5.1); Sodium 138 mmol/L (136-145)
[2021-08-11] MEDS ORDERED: Magnesium 2 GM/50 ML(in water) 2 GM in Premix Bag 1 BAG IVPB SCH (07:30)
[2021-08-11] MEDS ORDERED: Lorazepam 2 MG/ML VIAL SLOW IVP SCH (07:39)
[2021-08-11] MEDS ORDERED: Potassium Chloride 20 MEQ TAB PO SCH (07:45)
[2021-08-11] MEDS ORDERED: Topiramate 100 MG TAB PO SCH (09:00)
[2021-08-11] MEDS ORDERED: Aspirin 81 mg Enteric Coated Tablet PO SCH ×2 (09:00→11:45)
[2021-08-11 11:56] LABS: SARS-CoV-2 PCR by NAA Not Detected (NotDetected)
[2021-08-11 12:34] LABS: Cardiac Risk 3.9 (Less than 4.5)
[2021-08-11 15:41] VITALS: TEMP 97.2
[2021-08-11 22:13] VITALS: BP 109/63
== END 2021-08-11 18:15 | disposition home or self-care (01) ==
LOC: ERS 18:03 → NEURO 23:29
PROVIDERS: ADMIT Internal Medicine; ATTEND Internal Medicine
DX: G45.9 Transient cerebral ischemic attack, unspecified (principal); G43.109 Migraine with aura, not intractable, without status migrainosus; J44.9 Chronic obstructive pulmonary disease, unspecified; I49.9 Cardiac arrhythmia, unspecified; K21.9 Gastro-esophageal reflux disease without esophagitis; I51.7 Cardiomegaly; I37.1 Nonrheumatic pulmonary valve insufficiency; Z87.891 Personal history of nicotine dependence; Z79.899 Other long term (current) drug therapy; Z88.5 Allergy status to narcotic agent; Z88.8 Allergy status to other drugs, medicaments and biological substances; Z20.822 Contact with and (suspected) exposure to COVID-19
CPT/HCPCS: 36415; 70450; 70551; 71045; 80048; 80053; 80061; 82550; 83036; 83690; 83735; 84484; 85025; 93005; 93306; 95816; 95819; 95957; 96374; 96375; G0378; J2060; J3475; U0003; U0005

== ENCOUNTER 2021-11-02 11:11 | Outpatient (CLI) | payer BC | END 2021-11-02 11:12 | disposition home or self-care (01) | LOC: BICMAMMO 11:11 | PROVIDERS: ATTEND Family Medicine | DX: Z12.31 Encounter for screening mammogram for malignant neoplasm of breast (principal) | CPT/HCPCS: 77063; 77067 ==

== ENCOUNTER 2022-05-21 17:19 | Emergency (ER) | payer BC, OTHER ==
[2022-05-21 19:27] LABS: Bilirubin Negative (Negative); Blood, Urine Negative (Negative); Clarity Clear (Clear); Glucose, Urine (Dipstick) Normal (Negative); Ketone, Urine Negative (Negative); Leukocyte Negative Leu/uL (Negative); Nitrite Negative (Negative); Protein, Urine (Dipstick) Negative (Neg-Trace); Specific Gravity, Urine 1.022 (1.002-1.036); Urobilinogen Normal mg/dL (Less than 2)
[2022-05-21 19:58] LABS: BHCG - Serum Negative (NEGATIVE); Pregs Control Background? CLEAR/WHITE (CLR/WHITE); Pregs Control Bar Appear? YES (CONTROL BAR)
[2022-05-21 20:00] LABS: #Basophils 0.1 thou/uL (0.0-0.2); #Eosinphils 0.1 thou/uL (0.0-0.7); #Lymphocytes 2.9 thou/uL (1.20-3.40); #Monocytes 0.5 thou/uL (0.11-0.59); #Neutrophils 4.4 thou/uL (1.40-6.50); %Basophils 0.8 % (0.0-1.0); %Eosinophils 1.1 % (0.0-10.0); %Lymphocytes 36.3 % (21.0-51.0); %Neutrophils 55.8 % (42.0-75.0); Hemoglobin 12.8 g/dL (12.0-16.0); Mean Corpuscular HGB CONC 34.7 g/dL (32.0-36.0); Mean Corpuscular Hemoglobin 32.5 pg (27.0-31.0); Mean Corpuscular Volume 93.5 fl (78.0-98.0); Mean Platelet Volume 7.2 fL (7.4-10.4); Platelet Count 233 10x3/uL (130-400); RBC Distribution Width 10.9 % (11.5-14.5); Red Blood Cell (RBC) Count 3.95 mill/uL (4.20-5.40)
[2022-05-21 20:22] LABS: ALT (SGPT) 15 U/L (8-55); AST (SGOT) 13 U/L (5-34); Albumin 4.2 g/dL (3.5-5.0); Alkaline Phosphatase 41 U/L (40-110); Anion Gap 10 mmol/L (10-20); BUN (Urea Nitrogen) 17 mg/dL (7.0-18.7); Bilirubin, Total 0.5 mg/dL (0.2-1.2); Calc. Creatinine Clearance 0 mL/min (70-130); Calcium 9.4 mg/dL (7.8-10.44); Carbon Dioxide 22 mmol/L (22-29); Chloride 106 mmol/L (98-107); Estimated GFR 92; Globulin 3.7 g/dL (2.4-3.5); Glucose 86 mg/dL (70-105); Lipase 26 U/L (8-78); Protein, Total 7.9 g/dL (6.0-8.3); Sodium 134 mmol/L (136-145)
== END 2022-05-21 20:57 | disposition home or self-care (01) ==
LOC: ERS 17:19
DX: R10.9 Unspecified abdominal pain (principal); J44.9 Chronic obstructive pulmonary disease, unspecified; Z87.891 Personal history of nicotine dependence
CPT/HCPCS: 36415; 74176; 80053; 81003; 83690; 84703; 85025

== ENCOUNTER 2023-02-07 14:33 | Outpatient (CLI) | payer OTHER | END 2023-02-07 14:34 | disposition home or self-care (01) | LOC: BICMAMMO 14:33 | PROVIDERS: ATTEND Family Medicine | DX: Z12.31 Encounter for screening mammogram for malignant neoplasm of breast (principal) | CPT/HCPCS: 77063; 77067 ==